=== PATIENT | female | born 1960 | race Caucasian/White ===

== ENCOUNTER 2023-12-02 01:31 | Emergency (ER) | payer OTHER, SELFPAY ==
[2023-12-02 01:34] VITALS: BP 173/103
[2023-12-02 04:22] VITALS: BP 170/92
--- NOTE | 2023-12-02 04:53 | ED.GENMED ---
History of Present Illness
General
Chief Complaint: Headache
Source: patient
Exam Limitations: none
Time Seen by Provider: 12/02/23 04:41
Nursing documentation reviewed up to this point in time: agreed with
Travel History
Have you had any contact with someone who has COVID-19?: No
Do you have any symptoms of coronavirus? Fever > 100 degrees, chills, cough, shortness of breath, sore throat, loss of taste or smell, muscle aches, or headache?: No
History of Present Illness
History of Present Illness:
This is a 63-year-old woman who has history of hypertension, maintained on losartan 50 mg daily. She presents with acute headache top of her head that began after standing up from the couch. Headache was moderate in nature, no associated symptoms,
has improved but not resolved.
She does admit to frequent headaches, sinus headaches versus migraines but this headache felt somewhat different and she was concerned when she checked her blood pressure and it was elevated at 160 over 90s.
Blood pressure generally well-controlled.
She did not take anything for headache.
She generally takes Tylenol Sinus versus ibuprofen for headaches but did not attempt either tonight.
She states she has some second-degree relatives with history of cerebral bleeding, cerebral aneurysms and admits to being quite concerned with her headache and elevated blood pressure which prompted ED visit.
Past History
Past History
ED Past Medical History: HTN, Hypercholesterolemia (Diet-controlled) and Hypothyroidism; Negative IDDM or NIDDM
ED Past Surgical History: Appendectomy and Gynecological
Social History
Tobacco: Non-smoker
Alcohol: None
Drug: None
Personal:
Living: with family
Employment: Employed
Family History
Family History: Negative Early CAD
Phy Exam
Physical Exam
Physical Exam:
GENERAL: Alert , in no apparent distress. 63-year-old woman appears somewhat younger than stated age, she is bright and alert, pleasant, easily communicative and in no acute distress. Accompanied by her .
EYE: pupils equal and reactive. Extraocular muscles intact. Anicteric
NECK: Supple, nontender, no meningismus, no significant adenopathy.
ENT: posterior pharynx is clear, oral mucosa is moist. TM clear b/l, nares patent.
CARDIAC: Regular rate and rhythm. no murmur.
LUNGS: Clear breath sounds bilaterally, no acute respiratory distress, no wheezes/rales/rhonchi
ABDOMEN: Soft, nondistended, without focal tenderness, no r/g, no cvat. normoactive BS.
NEUROLOGICAL: Alert and oriented x3, no focal neuro deficits. Gait is manning and steady.
SKIN: Warm and dry, normal color, skin intact. No rash.
MUSCULOSKELETAL: No C/C/E. peripheral pulses are full and equal b/l. No palpable tenderness.
PSYCH: Normal and appropriate interaction.
Course
Orders/Labs/Results
Orders:
Orders
12/02/23 01:38
EKG [Electrocardiogram (*1)] Urgent
Reason for Study: Hypertension, Benign
EKG- Treatment ONCE
12/02/23 01:45
CT Head W/o Iv Contrast Urgent
Comment: family hx of cerebral hemmorhage
Reason For Exam: frontal headache, hypertension
Vital Signs
Initial and Last Documented VS:
Initial Vital Signs
Temp Pulse Resp BP Pulse Ox
98.1 F 88 18 173/103 98
12/02/23 01:34 12/02/23 01:34 12/02/23 01:34 12/02/23 01:34 12/02/23 01:34
Last Documented Vital Signs
Temp Pulse Resp BP Pulse Ox
98.1 F 78 18 160/90 97
12/02/23 01:34 12/02/23 04:22 12/02/23 01:34 12/02/23 04:59 12/02/23 04:22
MDM/Problems Addressed
Differential Diagnosis Includes:
Patient presents with acute headache top of her head that began after standing up from the couch. Headache was moderate in nature, no associated symptoms, has improved but not resolved.
She does admit to frequent headaches, sinus headaches versus migraines but this headache felt somewhat different and she was concerned when she checked her blood pressure and it was elevated at 160 over 90s.
Moderate hypertension initially 173/103 has improved to 160/90.
Patient is overall nontoxic in appearance, bright and alert, easily communicative.
Exam is benign.
No focal neurodeficits. No neck pain.
CT of the head shows no acute findings. No acute intracranial hemorrhage, no herniation or hydrocephalus.
As patient overall appears well, no other associated symptoms, acute subarachnoid hemorrhage is unlikely.
Patient has been offered IM Toradol versus ibuprofen versus Tylenol which she declines and is eager to be discharged to home. She plans to take a dose of Tylenol/ibuprofen upon returning home.
Recommend prompt follow-up with PCP for recheck.
Return precautions discussed.
Chronic conditions affecting care: HTN
*Radiology
Radiology exam reviewed: radiology read reviewed (CT of the head is unremarkable.)
*Pulse Oximetry
Patient hypoxic: no
*EKG
Interpreted by ED Provider?: Yes
Interpretation: normal
Comparison EKG: no changes (Unchanged from previous September 2017)
Rate: normal
Rhythm: sinus
[place]: normal axis
Interval: normal interval
QRS Pattern: normal QRS
Ischemia: no ischemia
*Critical Care Note
Total Time (30-74mins, 75-104mins- exclusive of procedures): Not Applicable
ED Attending Note
-
Portions of this chart may have been created with voice recognition software.� Occasional wrong word or��sound alike� substitutions may have occurred due to the inherent limitations of voice recognition software.
Discharge Plan
Departure
Patient Disposition: Home (Routine Discharge)
Date of Disposition: 12/02/23
Time of Disposition: 04:53
Patient with high blood pressure during this ER visit?: No
Condition: Good
Discharge Problem:
Acute tension headache, Elevated blood pressure reading with diagnosis of hypertension
Instructions: Headache, Adult (DC)
Prescriptions:
No Action
levothyroxine [Synthroid] 75 MCG tablet
75 mcg PO DAILY AT 0700
losartan 50 mg Tablet
50 mg PO DAILY
Referrals:
Juan Maxwell CRNP [[facility] Professional Person[facility]] - Call in 1-3 days for appt
Interventions
Interventions:
*Risk Screen - Suicide Last Done: 12/02/23 01:34
*General Assessment Last Done: 12/02/23 01:34
*Neglect/Abuse Screening Last Done: 12/02/23 01:34
ED- Fall Risk Assessment Last Done: 12/02/23 04:15
*Nursing Disposition Last Done: 12/02/23 04:59
ED- Cardiac Assessment Last Done: 12/02/23 04:15
ED- Neurological Assessment Last Done: 12/02/23 04:15
ED- Pulmonary Assessment Last Done: 12/02/23 04:15
Discharge Date and Time
Discharge Date/Time: 12/02/23 05:00
[2023-12-02 04:59] VITALS: BP 160/90
== END 2023-12-02 05:00 | disposition home or self-care (01) ==
LOC: EMR 01:31
PROVIDERS: EMERGENCY PHYSICIAN Emergency Medicine; FAMILY PHYSICIAN Internal Medicine
DX: G44.209 Tension-type headache, unspecified, not intractable (principal); I10 Essential (primary) hypertension
CPT/HCPCS: 99285; 70450; 93005

== ENCOUNTER → 2024-02-29 08:13 | Outpatient (REF) | payer OTHER, SELFPAY | LOC: DHCBS HW 08:13 | PROVIDERS: ATTENDING PHYSICIAN Internal Medicine Cardiovascular Disease; FAMILY PHYSICIAN Family Medicine | DX: R07.89 Other chest pain (principal) | CPT/HCPCS: 93306 ==

== ENCOUNTER → 2024-03-08 09:06 | Outpatient (REF) | payer OTHER, SELFPAY | LOC: RCS 09:06 | PROVIDERS: ATTENDING PHYSICIAN Internal Medicine Cardiovascular Disease; FAMILY PHYSICIAN Family Medicine | DX: R07.89 Other chest pain (principal) | CPT/HCPCS: 93017; 93350 ==

== ENCOUNTER → 2024-06-28 08:10 | Outpatient (REF) | payer OTHER, SELFPAY | LOC: HWRAD 08:10 | PROVIDERS: ATTENDING PHYSICIAN Family Medicine | DX: R10.814 Left lower quadrant abdominal tenderness (principal) | CPT/HCPCS: 74176 ==

== ENCOUNTER → 2024-11-10 07:59 | Outpatient (REF) | payer MEDICARE, OTHER, SELFPAY | LOC: HWWDC 07:59 | PROVIDERS: ATTENDING PHYSICIAN Family Medicine | DX: Z12.31 Encounter for screening mammogram for malignant neoplasm of breast (principal) | CPT/HCPCS: 77063; 77067 ==

== ENCOUNTER → 2024-11-15 10:04 | Outpatient (REF) | payer MEDICARE, OTHER, SELFPAY | LOC: WDC 10:04 | PROVIDERS: ATTENDING PHYSICIAN Family Medicine | DX: R92.8 Other abnormal and inconclusive findings on diagnostic imaging of breast (principal) | CPT/HCPCS: 77065 ==